=== PATIENT | female | born 1955 | race Caucasian/White ===

== ENCOUNTER → 2019-02-19 | Outpatient (CLI) | payer MEDICARE ==
--- NOTE | 2019-02-19 10:36 | PCVCIMAG ---
EXAM: BILATERAL RENAL ULTRASOUND AND BILATERAL RENAL DUPLEX INDICATION: Hypertension FINDINGS: Right kidney: Length measures 10.8 cm. No hydronephrosis or extensive renal scarring. Right renal duplex: Adequate technical quality. 90% proximal renal artery stenosis. The aortic to renal artery ratio is 4.2. The renal vein is patent. Left kidney: Length measures 9.3 cm. No hydronephrosis or extensive renal scarring. Left renal duplex: Adequate technical quality. No sonographic evidence of renal artery stenosis. The aortic to renal artery ratio is 1.6. The renal vein is patent. Bladder: No obvious abnormalities. IMPRESSION: 90% stenosis proximal right renal artery. No significant left renal artery stenosis. LOC:[id number]
--- NOTE | 2019-02-19 12:58 | PCVCIMAG ---
APPROVED REPORT Study performed: 02/19/2019 10:32:16 Exam: Stress Echocardiogram Indication: Hypertension, Hyperlipidemia Stress Nurse: Nya Flowers RN Status: routine Ht: 5 ft 6 in HR: 81 bpm BP: 122/80 mmHg Rhythm: NSR Procedure The patient underwent an Exercise Stress Test using the Maykel Protocol. Blood pressure, heart rate, and EKG were monitored. An Echocardiogram was performed by pharmaceutical development technician in four stages in quad fashion. At peak stress, four selected images were obtained and placed side by side with resting images for comparison. Stress Test Details Stress Test: Exercise stress testing was performed using a Maykel protocol. HR Resting HR: 81 bpmMax Heart Rate (APMHR): 155 bpm Max HR Achieved: 164 bpmTarget HR (85% APMHR): 131 bpm % of APMHR: 105 Recovery HR: 93 bpm HR response to stress: Normal HR response to stress BP Resting BP: 122/80 mmHg Max BP: 196/90 mmHg Recovery BP: 124/74 mmHg BP response to stress: Normal blood pressure response to stress. ECG Resting ECG: Sinus Rhythm, nonspecific ST-T abnormalities Stress ECG: Sinus Rhythm, nonspecific ST-T abnormalities Recovery ECG: Sinus Rhythm, nonspecific ST-T abnormalities Clinical Reason for Termination: Maximal effort Exercise duration: 7 min sec Highest Stage Achieved: Stage 2: 2.5 mph at 12% grade. Exercise capacity: 10.10 METs Overall Exercise Capacity for Age: Poor Pre-Stress Echo The resting Echocardiogram showed normal left ventricular contractility with an estimated Ejection Fraction of about 55-60%. Normal wall motion in all segments on baseline images. Post-Stress Echo The stress Echocardiogram showed normal left ventricular contractility with an estimated Ejection Fraction of about 65-70%. Mild basal inferior hypokinesis. Clinical No clinical or ECG evidence for ischemia. Conclusion Clinical Response: Non-ischemic Exercise Capacity: Below Average Stress ECG Response: Non-ischemic Stress Echo Images: Ischemic The left ventricle is normal in size and wall thickness in both the rest and stress images. No significant valvular abnormalities. Other Information Study Quality: Good <Conclusion> The left ventricle is normal in size and wall thickness in both the rest and stress images. No significant valvular abnormalities.
== END | disposition home or self-care (01) ==
LOC: PCVCIMAG 09:06
PROVIDERS: ATTEND Internal Medicine Cardiovascular Disease
DX: I70.1 Atherosclerosis of renal artery (principal); I10 Essential (primary) hypertension; I25.10 Atherosclerotic heart disease of native coronary artery without angina pectoris; M19.90 Unspecified osteoarthritis, unspecified site; E78.5 Hyperlipidemia, unspecified; Z82.49 Family history of ischemic heart disease and other diseases of the circulatory system; Z79.899 Other long term (current) drug therapy
CPT/HCPCS: 36415; 76770; 93325; 93351; 93975; G0463